=== PATIENT | female | born 1950 | race American Indian/Alaskan Native ===

== ENCOUNTER 2017-12-16 08:46 | Outpatient (CLI) | payer MEDICARE ==
--- NOTE | 2017-12-16 12:06 | Cat Scan Report ---
CT ABDOMEN PELVIS WITHOUT CONTRAST: HISTORY: Right lower quadrant abdominal pain. COMPARISON: none. TECHNIQUE: Helical CT in 1.25mm intervals without IV contrast. Sagittal and coronal reconstructions. FINDINGS: Lung bases: Normal. Liver: Normal. Biliary system: Cholecystectomy. No biliary dilatation. Pancreas: Normal. Spleen: Normal. Kidneys/ureters/bladder: Normal. Adrenal glands: Normal. Aorta: Normal. Intestines: Unremarkable given no oral contrast was administered. Mild fecal retention in the distal colon. Appendix: Normal. Pelvic viscera: Unremarkable.. Ascites: None. Adenopathy: None. Musculoskeletal: Early lumbar spondylosis. No fracture or suspicious bony lesion. IMPRESSION: No acute process is identified in the abdomen or pelvis.
== END 2017-12-16 08:47 | disposition home or self-care (01) ==
LOC: CT 08:46
PROVIDERS: ATTEND Family Medicine
DX: R10.31 Right lower quadrant pain (principal); M47.896 Other spondylosis, lumbar region; Z90.49 Acquired absence of other specified parts of digestive tract
CPT/HCPCS: 74176